=== PATIENT | female | born 1970 | race Caucasian/White ===

== ENCOUNTER 2016-12-10 08:22 | Inpatient (IN) | payer OTHER ==
[2016-12-10 10:45] VITALS: BMI 40.1
--- NOTE | 2016-12-10 11:55 | HP ---
CIWA Score - CIWA Score Nausea/Vomitin-Int. Nausea w/Dry Heave Muscle Tremors: 4-Moderate,w/Arms Extend Anxiety: 4-Mod. Anxious/Guarded Agitation: 4-Moderately Restless Paroxysmal Sweats: 1-Minimal Palms Moist Orientation: 0-Oriented Tacttile Disturbances: 3-Moderate Itch/Numb/Burn Auditory Disturbances: 0-None Visual Disturbances: 0-None Headache: 1-Very Mild CIWA-Ar Total Score: 21 Admission ROS S - HPI Chief Complaint: DETOX TX FOR XANAX AND COCAINE DEPENDENCE Allergies/Adverse Reactions: Allergies Allergy/AdvReac Type Severity Reaction Status Date / Time No Known Allergies Allergy Verified 12/10/16 10:45 History of Present Illness: 46 Y/O FEMALE WITH A HX OF XANAX AND COCAINE DEPENDENCE ON MMTP SEEKING DETOX [place] - Ebola screening Have you traveled outside of the country in the last 21 days: No Have you had contact with anyone from an Ebola affected area: No Have you been sick,other than usual withdrawal symptoms: No Do you have a fever: No - Review of Systems Constitutional: Chills, Loss of Appetite, Night Sweats, Changes in sleep EENT: reports: Blurred Vision (HX DRY EYE), Dental Problems (TOOTH DECAY) Respiratory: reports: Shortness of Breath (HX ASTHMA), Wheezing GI: reports: Nausea, Poor Appetite, Poor Fluid Intake : reports: No Symptoms Reported Musculoskeletal: reports: Back Pain, Joint Pain (ELBOW PAIN), Muscle Pain Integumentary: reports: No Symptoms Reported Neuro: reports: Headache (MIGRAINES--FIORICETS IN THE PAST), Seizure (X 1), Tremors, Unsteady Gait, Dizziness Endocrine: reports: No Symptoms Reported Hematology: reports: Anemia, Blood Clots (LEFT ARM- WAS ON XERALTO BUT STOPPED.) Psychiatric: reports: Orientated x3, Anxious Other Systems: Reviewed and Negative Patient History - Patient Medical History Hx Anemia: No Hx Asthma: Yes Hx Chronic Obstructive Pulmonary Disease (COPD): No Hx Cancer: No Hx Cardiac Disorders: No Hx Congestive Heart Failure: No Hx Hypertension: No Hx Hypercholesterolemia: No Hx Pacemaker: No HX Cerebrovascular Accident: No Hx Seizures: Yes (last episode was in 12/08/2016) Hx Dementia: No Hx Diabetes: No Hx Gastrointestinal Disorders: Yes (acid reflux-NEXIUM; CHRONIC NAUSEA-- ZOFRAN 8 MG IN THE PAST) Hx Liver Disease: No Hx Genitourinary Disorders: No Hx Sexually Transmitted Disorders: Yes (syphilis) Hx Renal Disease (ESRD): No Hx Thyroid Disease: No Hx Human Immunodeficiency Virus (HIV): No (NEGATIVE HX) Hx Hepatitis C: No Hx Depression: Yes (ON MEDS) Hx Suicide Attempt: No (DENIES) Hx Bipolar Disorder: Yes Hx Schizophrenia: No - Patient Surgical History Past Surgical History: Yes Hx Neurologic Surgery: No Hx Cataract Extraction: No Hx Cardiac Surgery: No Hx Lung Surgery: No Hx Breast Surgery: No Hx Breast Biopsy: No Hx Abdominal Surgery: No Hx Appendectomy: No Hx Cholecystectomy: No Hx Genitourinary Surgery: No Hx Section: Yes (x6) Hx Orthopedic Surgery: No Hx Hysterectomy: No Anesthesia Reaction: No - PPD History Previous Implant?: Yes Documented Results: Negative w/o proof Date: 10/20/15 PPD to be Administered?: Yes - Reproductive History Patient is a Female of Child Bearing Age (11 -55 yrs old): Yes (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 History Hx Alcohol Use: Yes (SOCIALLY-WINE COOLERS) Hx Substance Use: Yes (COCAINE/XANAX) Substance Use Type: Cocaine, Tranquilizers Hx Substance Use Treatment: Yes ([facility]) - Substances Abused Cocaine Route: Injection Frequency: Daily Amount used: $50 Age of first use: 25 Date of Last Use: 12/08/16 Xanax Route: Oral Frequency: Daily Amount used: 5-6 mg. Age of first use: 36 Date of Last Use: 12/09/16 Family Disease History - Family Disease History Family Disease History: CA: Grandparent, Mother Admission Physical Exam [facility]HS - Vital Signs Vital Signs: Vital Signs - 24 hr 12/10/16 10:36 Temperature 97.8 F Pulse Rate 106 H Respiratory 20 Rate Blood Pressure 119/68 - Physical General Appearance: Yes: Moderate Distress, Irritable, Anxious HEENTM: Yes: EOMI, Normocephalic, ALE, Pharynx Normal Respiratory: Yes: Lungs Clear, Normal Breath Sounds, No Respiratory Distress Neck: Yes: Supple Breast: Yes: Breast Exam Deferred Cardiology: Yes: Regular Rhythm, S1, S2, Tachycardia Abdominal: Yes: Normal Bowel Sounds, Non Tender, Soft, Protuberent, Surgical Scar Genitourinary: Yes: Other (N/C) Back: Yes: Within Normal Limits Musculoskeletal: Yes: full range of Motion, Gait Steady Extremities: Yes: Normal Range of Motion, Non-Tender Neurological: Yes: calibration tester II-XII NML intact, Fully Oriented, Alert Integumentary: Yes: Dry, Warm Lymphatic: Yes: Within Normal Limits - Diagnostic (1) Asthma Current Visit: Yes Status: Chronic Qualifiers: Asthma severity: mild intermittent Asthma complication type: uncomplicated Qualified Code(s): J45.20 - Mild intermittent asthma, uncomplicated (2) Nicotine dependence Current Visit: Yes Status: Acute Qualifiers: Nicotine product type: cigarettes Substance use status: in withdrawal Qualified Code(s): F17.213 - Nicotine dependence, cigarettes, with withdrawal (3) Nausea Current Visit: Yes Status: Suspected (4) Sedative, hypnotic or anxiolytic dependence with withdrawal, uncomplicated Current Visit: Yes Status: Acute (5) Methadone maintenance therapy patient Current Visit: Yes Status: Chronic (6) Cocaine dependence, uncomplicated Current Visit: Yes Status: Acute (7) History of seizure Current Visit: Yes Status: Suspected (8) GERD (gastroesophageal reflux disease) Current Visit: Yes Status: Chronic Qualifiers: Esophagitis presence: without esophagitis Qualified Code(s): K21.9 - Gastro-esophageal reflux disease without esophagitis Cleared for Admission S - Detox or Rehab [facility] Level of Care: Medically Managed Detox Regimen/Protocol: Valium [facility] Breath Alcohol Content Breath Alcohol Content: 0 Urine Pregancy Test - Result Urine Test Results: Negative- NO Line Present Urine Drug Screen - Results Drug Screen Negative: No Urine Drug Screen Results: JUNAA-Cocaine, OPI-Opiates, BZO-Benzodiazepines, MTD- Methadone, TCA-Tricyclic Antidepress, OXY-Oxycodone
[2016-12-10] MEDS ORDERED: ACETAMINOPHEN 325 MG TABLET (FP) PO PRN (12:09)
[2016-12-10] MEDS ORDERED: IBUPROFEN 400 MG TABLET (FP) PO PRN (12:09)
[2016-12-10] MEDS ORDERED: MAG HYDROX/AL HYDROX/SIMETH 30 ML UNIT-DOSE CUP PO PRN (12:09)
[2016-12-10] MEDS ORDERED: METHADONE HCL 10 MG TABLET (FOR DETOX USE ONLY) PO ONE ×2 (12:09→23:00)
[2016-12-10] MEDS ORDERED: diphenhydrAMINE HCL 50 MG CAPSULE PO PRN (12:09)
[2016-12-10] MEDS ORDERED: MAGNESIUM CITRATE 300 ML BOTTLE PO PRN (12:09)
[2016-12-10] MEDS ORDERED: MAGNESIUM HYDROX 2400MG/30ML ORAL SUSPENSION 30 ML CUP PO PRN (12:09)
[2016-12-10] MEDS ORDERED: MENTHOL/PHENOL 1 EACH UD MM PRN (12:09)
[2016-12-10] MEDS ORDERED: P-EPHED 60MG/TRIPROLIDI 2.5MG TABLET PO PRN (12:09)
[2016-12-10] MEDS ORDERED: LOPERAMIDE HCL 2 MG CAPSULE PO PRN (12:09)
[2016-12-10] MEDS ORDERED: diazePAM 5 MG TABLET PO ONE (13:03)
[2016-12-10] MEDS: NICOTINE 21 MG/24 HOURS TOPICAL PATCH TD SCH (13:49)
[2016-12-10] MEDS: diazePAM 5 MG TABLET PO SCH ×2 (13:51→22:24)
--- NOTE | 2016-12-10 14:49 | CONSULT ---
[facility] Psychiatric Consult - Data Date of interview: 12/10/16 Admission source: [facility] Identifying data: This is 46 years old obese female with history of Bipoolar Disorder, inotxicated with: Alcohol, Opioids, Cocaine, Xanax annd Nicotine Substance Abuse History: - Smoking Cessation. Smoking history: Current every day smoker. Have you smoked in the past 12 months: Yes. Aproximately how many cigarettes per day: 40. Hx Chewing Tobacco Use: No. Initiated information on smoking cessation: Yes. 'Breaking Loose' booklet given: 12/10/16. - Substance & Tx. History. Hx Alcohol Use: Yes (SOCIALLY-WINE COOLERS). Hx Substance Use: Yes (COCAINE/XANAX). Substance Use Type: Cocaine, Tranquilizers. Hx Substance Use Treatment: Yes ([facility]-DETOX). - Substances Abused. Cocaine. Route: Injection. Frequency: Daily. Amount used: $50. Age of first use: 25. Date of Last Use: 12/08/16. Xanax. Route: Oral. Frequency: Daily. Amount used : 5-6 mg. Age of first use: 36. Date of Last Use: 12/09/16 Medical History: Asthma Obesity, GERD, Seizure history Psychiatric History: Patientb reprots to carry Bipolar disorder, OCD, reports most recent psychiatric admission on more then 15 years ago, reports being stable on;. Seroqule 100mg po tid. Gabapentine 300mg po tid. Cogentine 1mg po bid. Current MMTP 160mg per day. Ambien 1900mg po qhs Physical/Sexual Abuse/Trauma History: Denies Additional Comment: Seroquil 100mg po tid. Gabapentine 300mg po tid. Cogentine 1mg po bid. Ambien 1900mg po qhs Mental Status Exam - Mental Status Exam Alert and Oriented to: Person Cognitive Function: Fair Patient Appearance: Unkempt Mood: Anxious Affect: Mood Congruent Patient Behavior: Cooperative Speech Pattern: Appropriate Voice Loudness: Mildly Loud Thought Process: Circumstantial, Goal Oriented Thought Disorder: Being Controlled Hallucinations: Denies Suicidal Ideation: Denies Homicidal Ideation: Denies Insight/Judgement: Fair Sleep: Difficulty falling asleep Appetite: Weight gain Muscle strength/Tone: Mild Hypotonicity Gait/Station: Shuffling Additional Comments: Seroqule 100mg po tid. Gabapentine 300mg po tid. Cogentine 1mg po bid. Ambien 1900mg po qhs Psychiatric Findings - Problem List ([place] 1, 2,3) (1) Cocaine dependence, uncomplicated Current Visit: Yes Status: Acute (2) Nicotine dependence Current Visit: Yes Status: Acute Qualifiers: Nicotine product type: cigarettes Substance use status: in withdrawal Qualified Code(s): F17.213 - Nicotine dependence, cigarettes, with withdrawal (3) Sedative, hypnotic or anxiolytic dependence with withdrawal, uncomplicated Current Visit: Yes Status: Acute (4) GERD (gastroesophageal reflux disease) Current Visit: Yes Status: Chronic Qualifiers: Esophagitis presence: without esophagitis Qualified Code(s): K21.9 - Gastro-esophageal reflux disease without esophagitis (5) Methadone maintenance therapy patient Current Visit: Yes Status: Chronic (6) Bipolar I disorder Current Visit: No Status: Acute (7) OCD (obsessive compulsive disorder) Current Visit: No Status: Acute (8) Opioid dependence Current Visit: No Status: Chronic - Initial Treatment Plan Initial Treatment Plan: Seroqule 100mg po tid. Gabapentine 300mg po tid. Cogentine 1mg po bid. Ambien 1900mg po qhs
[2016-12-10] MEDS: GABAPENTIN 300 MG CAPSULE (FP) PO SCH ×2 (16:01→22:24)
[2016-12-10 16:16] LABS: URINE APPEARANCE CLOUDY; URINE BILIRUBIN NEGATIVE (NEGATIVE); URINE BLOOD NEGATIVE (NEGATIVE); URINE COLOR AMBER; URINE GLUCOSE (UA) NEGATIVE (NEGATIVE); URINE KETONE NEGATIVE (NEGATIVE); URINE NITRITE NEGATIVE (NEGATIVE); URINE UROBILINOGEN 2.0 E.U/dl E.U./dl (0.2-1.0)
[2016-12-10 16:26] LABS: URINE LEUK ESTERASE TRACE (NEGATIVE); URINE PROTEIN 1+ (NEGATIVE)
[2016-12-10 16:35] LABS: URINE BACTERIA RARE /hpf (NONE SEEN); URINE HYALINE CAST 1 /lpf; URINE MUCUS MODERATE; URINE RBC 2 /hpf (0-3); URINE WBC 4 /hpf (3-5)
[2016-12-10] MEDS: BENZTROPINE MESYLATE 1 MG TABLET (FP) PO SCH (22:24)
[2016-12-10] MEDS: ZOLPIDEM TARTRATE 10 MG TABLET (PARK CARE ONLY) PO PRN (22:24)
[2016-12-10] MEDS: THIAMINE HCL 100 MG TABLET (FP) PO SCH (22:24)
[2016-12-10] MEDS: QUEtiapine FUMARATE 100 MG TABLET (FP) PO SCH (22:24)
[2016-12-11] MEDS: METHADONE HCL 40 MG DISPERSABLE TABLET PO SCH (07:45)
[2016-12-11] MEDS: diazePAM 5 MG TABLET PO SCH ×3 (07:45→22:41)
[2016-12-11] MEDS: GABAPENTIN 300 MG CAPSULE (FP) PO SCH ×3 (07:48→22:40)
[2016-12-11] MEDS: QUEtiapine FUMARATE 100 MG TABLET (FP) PO SCH ×3 (07:48→22:40)
[2016-12-11] MEDS: diazePAM 5 MG TABLET PO PRN (09:01)
[2016-12-11] MEDS: NICOTINE POLACRILEX 4 MG GUM BUC PRN ×2 (09:05→14:35)
[2016-12-11] MEDS ORDERED: METHADONE HCL 10 MG TABLET (FOR DETOX USE ONLY) PO SCH (10:00)
--- NOTE | 2016-12-11 10:08 | PN ---
[facility] CIWA - CIWA Score Nausea/Vomitin-No Nausea/No Vomiting Muscle Tremors: 3 Anxiety: 4-Mod. Anxious/Guarded Agitation: 3 Paroxysmal Sweats: 3 Orientation: 0-Oriented Tacttile Disturbances: 0-None Auditory Disturbances: 0-None Visual Disturbances: 0-None Headache: 1-Very Mild CIWA-Ar Total Score: 14 S Progress Note (SOAP) Subjective: anxiety sweats agitation body aches irritable interrupted sleep Objective: 12/11/16 10:07 Vital Signs Temperature 98.4 F 12/11/16 09:54 Pulse Rate 109 H 12/11/16 09:54 Respiratory Rate 14 12/11/16 09:54 Blood Pressure 113/63 12/11/16 09:54 O2 Sat by Pulse Oximetry (%) Laboratory Tests 12/10/16 14:00 Urine Color Claudia Urine Appearance Cloudy Urine pH 5.0 Ur Specific [place] 1.025 Urine Protein 1+ H Urine Glucose (UA) Negative Urine Ketones Negative Urine Blood Negative Urine Nitrite Negative Urine Bilirubin Negative Urine Urobilinogen 2.0 e.u/dl H Ur Leukocyte Esterase Trace H Urine RBC 2 Urine WBC 4 Ur Epithelial Cells Many Urine Bacteria Rare Hyaline Casts 1 Urine Mucus Moderate labs pending awake/alert ambulating no acute distress Assessment: 12/11/16 10:08 withdrawal sx Plan: continue detox increase fluids labs pending
[2016-12-11 10:39] LABS: MCH 29.7 pg (25.7-33.7); MCHC 33.4 g/dl (32.0-36.0); MEAN CELL VOLUME 88.9 fl (80-96); MEAN PLT VOLUME 8.8 fl (7.5-11.1); PLATELET COUNT 302 K/MM3 (134-434); RDW 13.8 % (11.6-15.6); WHITE BLOOD COUNT 7.5 K/mm3 (4.0-10.0)
[2016-12-11] MEDS: PRENATAL VITAMINS W/ FOLIC ACID TABLET (FP) PO SCH (10:42)
[2016-12-11] MEDS: BENZTROPINE MESYLATE 1 MG TABLET (FP) PO SCH ×2 (10:42→22:40)
[2016-12-11] MEDS: NICOTINE 21 MG/24 HOURS TOPICAL PATCH TD SCH (10:44)
[2016-12-11 11:08] LABS: ALBUMIN 3.2 g/dl (3.4-5.0); ALK PHOS 89 U/L (45-117); ANION GAP 9 (8-16); BILIRUBIN,TOTAL 0.4 mg/dL (0.2-1.0); CALCIUM 8.6 mg/dL (8.5-10.1); CO2 27 mmol/L (21-32); CREATININE 0.7 mg/dL (0.55-1.02); GLUCOSE,RANDOM 97 mg/dL (74-106); SGOT/AST 50 U/L (15-37); SGPT/ALT 38 U/L (12-78); TOT PROT 6.9 g/dl (6.4-8.2)
[2016-12-11] MEDS: guaiFENesin/D-METHORPHAN HB 10 ML UNIT-DOSE CUPS PO PRN ×2 (15:23→22:41)
[2016-12-11] MEDS ORDERED: ALBUTEROL SO4 6.7 GM HFA INHALER IH ONE (15:24)
[2016-12-11] MEDS: ALBUTEROL SO4 6.7 GM HFA INHALER IH PRN (15:25)
--- NOTE | 2016-12-11 17:22 | EKG ---
Test Reason : Blood Pressure : / mmHG Vent. Rate : 094 BPM Atrial Rate : 094 BPM P-R Int : 142 ms QRS Dur : 082 ms QT Int : 368 ms P-R-T Axes : 063 016 047 degrees QTc Int : 460 ms NORMAL SINUS RHYTHM POSSIBLE LEFT ATRIAL ENLARGEMENT BORDERLINE ECG WHEN COMPARED WITH ECG OF 20-OCT-2015 13:30, PREMATURE VENTRICULAR COMPLEXES ARE NO LONGER PRESENT T WAVE VARIATION QT HAS LENGTHENED Confirmed by GARTH MILLIGAN, CHER ([id number]) on 12/11/2016 5:21:57 PM Referred By: Telly Irizarry Confirmed By:CHER LIANG MD
[2016-12-11] MEDS: ALBUTEROL SO4 2.5/IPRATROPIUM 0.5 INH SOL 3 ML VIAL.NEB. NEB SCH ×2 (18:40→23:27)
[2016-12-11] MEDS: ZOLPIDEM TARTRATE 10 MG TABLET (PARK CARE ONLY) PO PRN (22:40)
[2016-12-11] MEDS: THIAMINE HCL 100 MG TABLET (FP) PO SCH (22:58)
[2016-12-12] MEDS: GABAPENTIN 300 MG CAPSULE (FP) PO SCH ×3 (07:30→22:50)
[2016-12-12] MEDS: METHADONE HCL 40 MG DISPERSABLE TABLET PO SCH (07:30)
[2016-12-12] MEDS: ALBUTEROL SO4 2.5/IPRATROPIUM 0.5 INH SOL 3 ML VIAL.NEB. NEB SCH ×2 (07:34→22:53)
[2016-12-12] MEDS: QUEtiapine FUMARATE 100 MG TABLET (FP) PO SCH ×3 (07:35→22:50)
[2016-12-12] MEDS ORDERED: METHADONE HCL 5 MG TABLET (FOR DETOX USE ONLY) PO SCH (10:00)
[2016-12-12] MEDS: PRENATAL VITAMINS W/ FOLIC ACID TABLET (FP) PO SCH (10:39)
[2016-12-12] MEDS: NICOTINE 21 MG/24 HOURS TOPICAL PATCH TD SCH (10:39)
[2016-12-12] MEDS: BENZTROPINE MESYLATE 1 MG TABLET (FP) PO SCH ×2 (10:39→22:50)
[2016-12-12] MEDS: diazePAM 5 MG TABLET PO SCH ×2 (10:40→22:50)
--- NOTE | 2016-12-12 12:10 | PN ---
[facility] CIWA - CIWA Score Nausea/Vomitin Muscle Tremors: 2 Anxiety: 3 Agitation: 2 Paroxysmal Sweats: 2 Orientation: 0-Oriented Tacttile Disturbances: 2-Mild Itch/Numbness/Burn Auditory Disturbances: 0-None Visual Disturbances: 0-None Headache: 0-None Present CIWA-Ar Total Score: 13 S Progress Note (SOAP) Subjective: interrupted sleep, left arm pain , anxious Objective: 12/12/16 12:07 Vital Signs Temperature 98.2 F 12/12/16 10:00 Pulse Rate 98 H 12/12/16 10:00 Respiratory Rate 18 12/12/16 10:00 Blood Pressure 114/66 12/12/16 10:00 O2 Sat by Pulse Oximetry (%) Laboratory Tests 12/10/16 12/11/16 12/11/16 14:00 06:00 06:00 WBC 7.5 RBC 4.09 Hgb 12.1 Hct 36.3 MCV 88.9 MCHC 33.4 RDW 13.8 Plt Count 302 D MPV 8.8 Sodium 143 Potassium 4.2 Chloride 107 Carbon Dioxide 27 Anion Gap 9 BUN 9 D Creatinine 0.7 D Creat Clearance w eGFR > 60 Random Glucose 97 Calcium 8.6 Total Bilirubin 0.4 AST 50 H D ALT 38 D Alkaline Phosphatase 89 Total Protein 6.9 Albumin 3.2 L Urine Color Claudia Urine Appearance Cloudy Urine pH 5.0 Ur Specific [place] 1.025 Urine Protein 1+ H Urine Glucose (UA) Negative Urine Ketones Negative Urine Blood Negative Urine Nitrite Negative Urine Bilirubin Negative Urine Urobilinogen 2.0 e.u/dl H Ur Leukocyte Esterase Trace H Urine RBC 2 Urine WBC 4 Ur Epithelial Cells Many Urine Bacteria Rare Hyaline Casts 1 Urine Mucus Moderate RPR Titer 12/11/16 06:00 WBC RBC Hgb Hct MCV MCHC RDW Plt Count MPV Sodium Potassium Chloride Carbon Dioxide Anion Gap BUN Creatinine Creat Clearance w eGFR Random Glucose Calcium Total Bilirubin AST ALT Alkaline Phosphatase Total Protein Albumin Urine Color Urine Appearance Urine pH Ur Specific [place] Urine Protein Urine Glucose (UA) Urine Ketones Urine Blood Urine Nitrite Urine Bilirubin Urine Urobilinogen Ur Leukocyte Esterase Urine RBC Urine WBC Ur Epithelial Cells Urine Bacteria Hyaline Casts Urine Mucus RPR Titer Nonreactive pt aox3 in nad ambulating Assessment: 12/12/16 12:08 withdrawal sx's left arm mass? lipoma h/o dvt no redness , swelling Plan: cont. detox increase fluids xray left arm
[2016-12-12] MEDS: diazePAM 5 MG TABLET PO PRN (13:38)
[2016-12-12] MEDS: FLUoxetine HCL 20 MG CAPSULE (FP) PO SCH (13:39)
[2016-12-12] MEDS: NICOTINE POLACRILEX 4 MG GUM BUC PRN ×2 (15:12→22:54)
[2016-12-12] MEDS: ALBUTEROL SO4 6.7 GM HFA INHALER IH PRN (22:49)
[2016-12-12] MEDS: THIAMINE HCL 100 MG TABLET (FP) PO SCH (22:49)
[2016-12-12] MEDS: ZOLPIDEM TARTRATE 10 MG TABLET (PARK CARE ONLY) PO PRN (22:50)
[2016-12-12] MEDS: guaiFENesin/D-METHORPHAN HB 10 ML UNIT-DOSE CUPS PO PRN (22:50)
[2016-12-13] MEDS: ALBUTEROL SO4 2.5/IPRATROPIUM 0.5 INH SOL 3 ML VIAL.NEB. NEB SCH ×2 (00:22→17:55)
[2016-12-13] MEDS: GABAPENTIN 300 MG CAPSULE (FP) PO SCH ×3 (06:19→22:34)
[2016-12-13] MEDS: METHADONE HCL 40 MG DISPERSABLE TABLET PO SCH (06:20)
[2016-12-13] MEDS: QUEtiapine FUMARATE 100 MG TABLET (FP) PO SCH ×3 (06:22→22:34)
[2016-12-13] MEDS: NICOTINE POLACRILEX 4 MG GUM BUC PRN ×2 (06:30→18:06)
[2016-12-13] MEDS: PRENATAL VITAMINS W/ FOLIC ACID TABLET (FP) PO SCH (11:01)
[2016-12-13] MEDS: FLUoxetine HCL 20 MG CAPSULE (FP) PO SCH (11:01)
[2016-12-13] MEDS: diazePAM 5 MG TABLET PO SCH ×2 (11:01→22:34)
[2016-12-13] MEDS: NICOTINE 21 MG/24 HOURS TOPICAL PATCH TD SCH (11:02)
[2016-12-13] MEDS: BENZTROPINE MESYLATE 1 MG TABLET (FP) PO SCH ×2 (11:02→22:34)
--- NOTE | 2016-12-13 11:19 | PN ---
S Progress Note (SOAP) Subjective: left upper arm tenderness sweats back pain Objective: 12/13/16 11:18 Vital Signs Temperature 98.1 F 12/13/16 09:40 Pulse Rate 78 12/13/16 09:40 Respiratory Rate 20 12/13/16 09:40 Blood Pressure 100/56 12/13/16 09:40 O2 Sat by Pulse Oximetry (%) awake/alert ambulating no acute distress Assessment: 12/13/16 11:20 mild withdrawals Plan: continue detox increase fluids ultrasound result of upper left arm pending lidocaine patch ordered for back
[2016-12-13] MEDS ORDERED: LIDOCAINE 5% TOPICAL PATCH TP ONE (11:21)
[2016-12-13] MEDS ORDERED: hydrOXYzine PAMOATE 50 MG CAPSULE (FP) PO PRN (17:28)
--- NOTE | 2016-12-13 19:14 | PN ---
[id number]. Clearly invested in medication-seeking behavior. No clinical justification for medications changes. Request is denied and patient got redirected. In response,she started acting out.Loud,argumentative. Caused a commotion on the unit (racial slurs,profane language). Verbally abusive towards nursing staff.Intimidating attitude.Splitting. Patient is observed trying to polarize peers against the treating staff. This is an overt expression of antisocial/borderline personality traits. Interventions : Ms Magana is redirected about rules/regulations. Security personnel is summoned for assistance. Debriefing session with Multidisciplinary team. Limits set. Effective crisis intervention (patient calmed down).
[2016-12-13] MEDS: ZOLPIDEM TARTRATE 10 MG TABLET (PARK CARE ONLY) PO PRN (21:30)
[2016-12-13] MEDS: THIAMINE HCL 100 MG TABLET (FP) PO SCH (22:34)
[2016-12-14 06:58] VITALS: BP 109/61; PULSE 74; TEMP 97.7
[2016-12-14] MEDS: METHADONE HCL 40 MG DISPERSABLE TABLET PO SCH (07:31)
[2016-12-14] MEDS: GABAPENTIN 300 MG CAPSULE (FP) PO SCH (07:31)
[2016-12-14] MEDS: PRENATAL VITAMINS W/ FOLIC ACID TABLET (FP) PO SCH (09:35)
[2016-12-14] MEDS: BENZTROPINE MESYLATE 1 MG TABLET (FP) PO SCH (09:35)
[2016-12-14] MEDS: FLUoxetine HCL 20 MG CAPSULE (FP) PO SCH (09:35)
[2016-12-14] MEDS: NICOTINE 21 MG/24 HOURS TOPICAL PATCH TD SCH (09:36)
[2016-12-14] MEDS ORDERED: diazePAM 5 MG TABLET PO SCH (10:00)
[2016-12-14] MEDS ORDERED: METHADONE HCL 10 MG TABLET (FOR DETOX USE ONLY) PO SCH (10:00)
[2016-12-15] MEDS ORDERED: METHADONE HCL 5 MG TABLET (FOR DETOX USE ONLY) PO SCH (06:00)
--- NOTE | 2016-12-27 16:55 | DS ---
[facility] Detox Discharge Summary Admission Date: 12/10/16 - History Present History: Cocaine Dependence, Sedative Dependence, MMTP - Physical Exam Results Vital Signs: Vital Signs Temperature 97.7 F 12/14/16 06:00 Pulse Rate 74 12/14/16 06:00 Respiratory Rate 18 12/14/16 06:00 Blood Pressure 109/61 12/14/16 06:00 O2 Sat by Pulse Oximetry (%) - Treatment Hospital Course: Detox Protocol Followed, Detoxed Safely, Responded well, Discharged Condition Good - Medication Discharge Medications: Ambulatory Orders Albuterol Sulfate Inhaler - [Ventolin Hfa Inhaler -] 2 inh PO Q4H PRN 10/18/15 Quetiapine Fumarate [Seroquel] 50 mg PO BID #60 tablet 10/20/15 Benztropine Mesylate [Cogentin -] 1 mg PO BID #60 tablet 12/10/16 Gabapentin 300 mg PO TID #90 ml 12/10/16 Gabapentin [Neurontin -] 100 mg PO Q8H 12/10/16 Quetiapine Fumarate [Seroquel -] 300 mg PO BID #60 tab 12/10/16 Zolpidem Tartrate [Ambien] 10 mg PO HS 12/10/16 Fluoxetine HCl [Prozac -] 40 mg PO DAILY #30 cap 12/12/16 - Diagnosis (1) Bipolar I disorder Status: Chronic (2) Cocaine dependence, uncomplicated Status: Chronic (3) Muscular chest pain Status: Acute (4) Nicotine dependence Status: Chronic Qualifiers: Nicotine product type: cigarettes Substance use status: uncomplicated Qualified Code(s): F17.210 - Nicotine dependence, cigarettes, uncomplicated (5) OCD (obsessive compulsive disorder) Status: Chronic Qualifiers: Obsessive-compulsive disorder type: unspecified Qualified Code(s): F42.9 - Obsessive-compulsive disorder, unspecified (6) Sedative, hypnotic or anxiolytic dependence with withdrawal, uncomplicated Status: Chronic (7) Asthma Status: Chronic Qualifiers: Asthma severity: mild intermittent Asthma complication type: uncomplicated Qualified Code(s): J45.20 - Mild intermittent asthma, uncomplicated (8) GERD (gastroesophageal reflux disease) Status: Chronic Qualifiers: Esophagitis presence: without esophagitis Qualified Code(s): K21.9 - Gastro-esophageal reflux disease without esophagitis (9) Methadone maintenance therapy patient Status: Chronic - AMA Did Patient Leave Against Medical Advice: No
== END 2016-12-14 10:11 | disposition home or self-care (01) | DRG 773 ==
LOC: YASAS 08:22 → Y6N 12:37
PROVIDERS: ADMIT Internal Medicine Addiction Medicine; ATTEND Internal Medicine Addiction Medicine
PROC: HZ2ZZZZ Detoxification Services for Substance Abuse Treatment (ICD-10-PCS; principal; 2016-12-14)
DX: F11.20 Opioid dependence, uncomplicated (principal); F13.230 Sedative, hypnotic or anxiolytic dependence with withdrawal, uncomplicated; F14.20 Cocaine dependence, uncomplicated; F17.213 Nicotine dependence, cigarettes, with withdrawal; F31.9 Bipolar disorder, unspecified; F42.9 Obsessive-compulsive disorder, unspecified; K21.9 Gastro-esophageal reflux disease without esophagitis; J45.30 Mild persistent asthma, uncomplicated; G40.909 Epilepsy, unspecified, not intractable, without status epilepticus; R11.0 Nausea; Z87.42 Personal history of other diseases of the female genital tract
CPT/HCPCS: 36415; 80053; 81003; 81015; 85027; 86593; 93005; 93010; 93971; 94640

== ENCOUNTER 2017-08-26 11:26 | Inpatient (IN) | payer OTHER ==
[2017-08-26 11:59] VITALS: BMI 40.5
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
[2017-08-26] MEDS ORDERED: LOPERAMIDE HCL 2 MG CAPSULE PO PRN (16:49)
[2017-08-26] MEDS ORDERED: diazePAM 5 MG TABLET PO ONE (16:49)
[2017-08-26] MEDS ORDERED: MAG HYDROX/AL HYDROX/SIMETH 30 ML UNIT-DOSE CUP PO PRN (16:49)
[2017-08-26] MEDS ORDERED: P-EPHED 60MG/TRIPROLIDI 2.5MG TABLET PO PRN (16:49)
[2017-08-26] MEDS ORDERED: ACETAMINOPHEN 325 MG TABLET (FP) PO PRN (16:49)
[2017-08-26] MEDS ORDERED: MENTHOL/PHENOL 1 EACH UD MM PRN (16:49)
[2017-08-26] MEDS ORDERED: guaiFENesin/D-METHORPHAN HB 10 ML UNIT-DOSE CUPS PO PRN (16:49)
[2017-08-26] MEDS ORDERED: MAGNESIUM CITRATE 300 ML BOTTLE PO PRN (16:49)
[2017-08-26] MEDS ORDERED: MAGNESIUM HYDROX 2400MG/30ML ORAL SUSPENSION 30 ML CUP PO PRN (16:49)
[2017-08-26] MEDS: NICOTINE POLACRILEX 4 MG GUM BUC PRN (18:26)
[2017-08-26] MEDS: NICOTINE 21 MG/24 HOURS TOPICAL PATCH TD SCH (18:26)
[2017-08-26] MEDS: diazePAM 5 MG TABLET PO SCH (22:06)
[2017-08-26] MEDS: THIAMINE HCL 100 MG TABLET (FP) PO SCH (22:06)
[2017-08-26 23:30] LABS: URINE APPEARANCE CLEAR; URINE BILIRUBIN NEGATIVE (NEGATIVE); URINE BLOOD NEGATIVE (NEGATIVE); URINE COLOR YELLOW; URINE GLUCOSE (UA) NEGATIVE (NEGATIVE); URINE KETONE NEGATIVE (NEGATIVE); URINE LEUK ESTERASE TRACE (NEGATIVE); URINE NITRITE NEGATIVE (NEGATIVE); URINE PROTEIN NEGATIVE (NEGATIVE); URINE UROBILINOGEN NEGATIVE mg/dL (0.2-1.0)
[2017-08-26 23:53] LABS: EPI CELLS RARE /HPF (FEW); URINE BACTERIA RARE /hpf (NONE SEEN); URINE MUCUS RARE
[2017-08-27] MEDS: diazePAM 5 MG TABLET PO PRN ×3 (00:39→18:16)
[2017-08-27] MEDS: diazePAM 5 MG TABLET PO SCH ×3 (06:12→22:12)
[2017-08-27] MEDS: METHADONE HCL 40 MG DISPERSABLE TABLET PO SCH (07:21)
[2017-08-27] MEDS: NICOTINE POLACRILEX 4 MG GUM BUC PRN (07:22)
[2017-08-27] MEDS ORDERED: ONDANSETRON *ODT* 4 MG TABLET SL ONE (09:35)
--- NOTE | 2017-08-27 09:39 | PN ---
S CIWA - CIWA Score Nausea/Vomitin-Int. Nausea w/Dry Heave Muscle Tremors: 3 Anxiety: 4-Mod. Anxious/Guarded Agitation: 4-Moderately Restless Paroxysmal Sweats: 1-Minimal Palms Moist Orientation: 0-Oriented Tacttile Disturbances: 0-None Auditory Disturbances: 0-None Visual Disturbances: 0-None Headache: 0-None Present CIWA-Ar Total Score: 16 BHS Progress Note (SOAP) Subjective: nausea, sweats, interrupted sleep, anxiety, tremors back pain reproted Objective: 08/27/17 09:38 Vital Signs - 24 hr 08/26/17 08/26/17 08/26/17 11:57 17:51 21:52 Temperature 96 F L 97.9 F 98.1 F Pulse Rate 116 H 98 H 94 H Respiratory 20 18 16 Rate Blood Pressure 117/79 116/82 133/63 08/27/17 08/27/17 03:30 06:25 Temperature 97.7 F Pulse Rate 84 Respiratory 18 18 Rate Blood Pressure 110/82 Laboratory Tests 08/26/17 Unknown Urine Color Yellow Urine Appearance Clear Urine pH 5.0 Ur Specific [place] 1.015 Urine Protein Negative Urine Glucose (UA) Negative Urine Ketones Negative Urine Blood Negative Urine Nitrite Negative Urine Bilirubin Negative Urine Urobilinogen Negative Ur Leukocyte Esterase Trace Urine WBC (Auto) 1 Urine RBC (Auto) 1 Ur Epithelial Cells Rare Urine Bacteria Rare Urine Mucus Rare labs still pending Assessment: 08/27/17 09:38 withdrawal sx, cont detox, fluids, encourage ambualtion, zofran for nausea, baclofen for back pain
[2017-08-27 10:12] LABS: ALBUMIN 3.6 g/dl (3.4-5.0); ANION GAP 7 (8-16); BILIRUBIN,TOTAL 0.5 mg/dL (0.2-1.0); BLOOD UREA NITROGEN 10 mg/dL (7-18); CALCIUM 8.8 mg/dL (8.5-10.1); CHLORIDE 104 mmol/L (98-107); CO2 31 mmol/L (21-32); CREATININE 0.8 mg/dL (0.55-1.02); GLUCOSE,RANDOM 79 mg/dL (74-106); SGOT/AST 41 U/L (15-37); SGPT/ALT 51 U/L (12-78); SODIUM 142 mmol/L (136-145); TOT PROT 7.6 g/dl (6.4-8.2)
[2017-08-27 10:13] LABS: ALK PHOS 107 U/L (45-117)
[2017-08-27 10:19] LABS: HEMATOCRIT 39.1 % (32.4-45.2); HEMOGLOBIN 12.7 GM/dL (10.7-15.3); MCH 28.7 pg (25.7-33.7); MCHC 32.5 g/dl (32.0-36.0); MEAN CELL VOLUME 88.5 fl (80-96); MEAN PLT VOLUME 8.3 fl (7.5-11.1); PLATELET COUNT 394 K/MM3 (134-434); RBC 4.42 M/mm3 (3.60-5.2); WHITE BLOOD COUNT 6.7 K/mm3 (4.0-10.0)
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
[2017-08-27] MEDS: QUEtiapine FUMARATE 200 MG TABLET PO SCH ×2 (10:41→22:12)
[2017-08-27] MEDS: NICOTINE 21 MG/24 HOURS TOPICAL PATCH TD SCH (10:42)
[2017-08-27] MEDS: PRENATAL VITAMINS W/ FOLIC ACID TABLET (FP) PO SCH (10:42)
[2017-08-27] MEDS: GABAPENTIN 300 MG CAPSULE (FP) PO SCH ×2 (13:35→22:12)
[2017-08-27] MEDS: BACLOFEN 10 MG TABLET (FP) PO SCH ×2 (13:35→22:11)
--- NOTE | 2017-08-27 14:10 | EKG ---
Test Reason : Blood Pressure : / mmHG Vent. Rate : 092 BPM Atrial Rate : 092 BPM P-R Int : 152 ms QRS Dur : 082 ms QT Int : 380 ms P-R-T Axes : 070 019 038 degrees QTc Int : 469 ms NORMAL SINUS RHYTHM NORMAL ECG WHEN COMPARED WITH ECG OF 10-DEC-2016 12:35, NONSPECIFIC T WAVE ABNORMALITY NO LONGER EVIDENT IN ANTERIOR LEADS Confirmed by MD Rina, Cristian ([id number]) on 08/27/2017 2:09:48 PM Referred By: Confirmed By:Cristian Flynn MD
[2017-08-27] MEDS: ZOLPIDEM TARTRATE 10 MG TABLET (PARK CARE ONLY) PO PRN (22:11)
[2017-08-27] MEDS: THIAMINE HCL 100 MG TABLET (FP) PO SCH (22:12)
[2017-08-27] MEDS: metroNIDAZOLE 0.75% VAGINAL GEL 70 GM TUBE VG SCH (22:12)
[2017-08-28] MEDS: METHADONE HCL 40 MG DISPERSABLE TABLET PO SCH (05:23)
[2017-08-28] MEDS: GABAPENTIN 300 MG CAPSULE (FP) PO SCH ×3 (05:24→22:02)
[2017-08-28] MEDS: BACLOFEN 10 MG TABLET (FP) PO SCH (05:24)
--- NOTE | 2017-08-28 09:27 | PN ---
[facility] CIWA - CIWA Score Nausea/Vomitin-Mild Nausea/No Vomiting Muscle Tremors: 3 Anxiety: 3 Agitation: 3 Paroxysmal Sweats: 1-Minimal Palms Moist Orientation: 0-Oriented Tacttile Disturbances: 0-None Auditory Disturbances: 0-None Visual Disturbances: 0-None Headache: 0-None Present CIWA-Ar Total Score: 11 S Progress Note (SOAP) Subjective: tremor sweat anxiety GI upset Objective: 08/28/17 09:27 Vital Signs Temperature 97.9 F 08/28/17 06:20 Pulse Rate 78 08/28/17 06:20 Respiratory Rate 19 08/28/17 06:20 Blood Pressure 109/61 08/28/17 06:20 O2 Sat by Pulse Oximetry (%) Laboratory Last Values WBC 6.7 K/mm3 (4.0-10.0) 08/27/17 06:00 RBC 4.42 M/mm3 (3.60-5.2) 08/27/17 06:00 Hgb 12.7 GM/dL (10.7-15.3) 08/27/17 06:00 Hct 39.1 % (32.4-45.2) 08/27/17 06:00 MCV 88.5 fl (80-96) 08/27/17 06:00 MCH 28.7 pg (25.7-33.7) 08/27/17 06:00 MCHC 32.5 g/dl (32.0-36.0) 08/27/17 06:00 RDW 14.0 % (11.6-15.6) 08/27/17 06:00 Plt Count 394 K/MM3 (134-434) D 08/27/17 06:00 MPV 8.3 fl (7.5-11.1) 08/27/17 06:00 Sodium 142 mmol/L (136-145) 08/27/17 06:00 Potassium 4.0 mmol/L (3.5-5.1) 08/27/17 06:00 Chloride 104 mmol/L (98-107) 08/27/17 06:00 Carbon Dioxide 31 mmol/L (21-32) 08/27/17 06:00 Anion Gap 7 (8-16) L 08/27/17 06:00 BUN 10 mg/dL (7-18) 08/27/17 06:00 Creatinine 0.8 mg/dL (0.55-1.02) 08/27/17 06:00 Creat Clearance w eGFR > 60 (>60) 08/27/17 06:00 Random Glucose 79 mg/dL (74-106) 08/27/17 06:00 Calcium 8.8 mg/dL (8.5-10.1) 08/27/17 06:00 Total Bilirubin 0.5 mg/dL (0.2-1.0) D 08/27/17 06:00 AST 41 U/L (15-37) H 08/27/17 06:00 ALT 51 U/L (12-78) 08/27/17 06:00 Alkaline Phosphatase 107 U/L (45-117) 08/27/17 06:00 Total Protein 7.6 g/dl (6.4-8.2) 08/27/17 06:00 Albumin 3.6 g/dl (3.4-5.0) 08/27/17 06:00 Urine Color Yellow 08/26/17 Unknown Urine Appearance Clear 08/26/17 Unknown Urine pH 5.0 (5.0-8.0) 08/26/17 Unknown Ur Specific [place] 1.015 (1.001-1.035) 08/26/17 Unknown Urine Protein Negative (NEGATIVE) 08/26/17 Unknown Urine Glucose (UA) Negative (NEGATIVE) 08/26/17 Unknown Urine Ketones Negative (NEGATIVE) 08/26/17 Unknown Urine Blood Negative (NEGATIVE) 08/26/17 Unknown Urine Nitrite Negative (NEGATIVE) 08/26/17 Unknown Urine Bilirubin Negative (NEGATIVE) 08/26/17 Unknown Urine Urobilinogen Negative mg/dL (0.2-1.0) 08/26/17 Unknown Ur Leukocyte Esterase Trace (NEGATIVE) 08/26/17 Unknown Urine WBC (Auto) 1 /hpf (3-5) 08/26/17 Unknown Urine RBC (Auto) 1 /hpf (0-3) 08/26/17 Unknown Ur Epithelial Cells Rare /HPF (FEW) 08/26/17 Unknown Urine Bacteria Rare /hpf (NONE SEEN) 08/26/17 Unknown Urine Mucus Rare 08/26/17 Unknown RPR Titer Nonreactive (NONREACTIVE) 08/27/17 06:00 Hepatitis C Antibody <0.1 s/co ratio (0.0-0.9) 08/26/17 06:00 HIV 1&2 Antibody Screen Negative 08/27/17 06:00 HIV P24 Antigen Negative 08/27/17 06:00 lab noted Assessment: 08/28/17 09:27 withdrawal sx Plan: continue detox
[2017-08-28] MEDS ORDERED: METHYL SALICYLATE/MENTHOL OINT 30 GM TUBE TP SCH (10:00)
[2017-08-28] MEDS: diazePAM 5 MG TABLET PO SCH ×2 (10:35→22:02)
[2017-08-28] MEDS: CYCLOBENZAPRINE HCL 10 MG TABLET (FP) PO PRN ×2 (10:35→22:02)
[2017-08-28] MEDS: QUEtiapine FUMARATE 200 MG TABLET PO SCH (10:35)
[2017-08-28] MEDS: PRENATAL VITAMINS W/ FOLIC ACID TABLET (FP) PO SCH (10:35)
[2017-08-28] MEDS: NICOTINE 21 MG/24 HOURS TOPICAL PATCH TD SCH (10:36)
[2017-08-28] MEDS: diazePAM 5 MG TABLET PO PRN ×2 (13:16→17:32)
[2017-08-28] MEDS: NICOTINE POLACRILEX 4 MG GUM BUC PRN ×2 (13:17→17:33)
--- NOTE | 2017-08-28 17:14 | PN ---
[facility] Progress Note Note: Psychiatric nurse practitioner: As per phamacy claims patient receives seroquel 200mg TID. Dosage confirmed with patient.Upon psychiatric consultation patient was prescribed 200mg BID to prevent oversedation. Pt. able to tolerate seroquel 200mg BID. No complaints of oversedation or dizziness reported. Seroquel to be increased to 250mg BID. Pt. agreeable with plan. Will continue to monitor.
[2017-08-28] MEDS ORDERED: QUEtiapine FUMARATE 200 MG TABLET PO SCH (17:19)
[2017-08-28] MEDS: ONDANSETRON *ODT* 4 MG TABLET SL PRN (17:32)
[2017-08-28] MEDS ORDERED: QUEtiapine FUMARATE 50 MG TABLET ONE (21:39)
[2017-08-28] MEDS ORDERED: QUEtiapine FUMARATE 200 MG TABLET ONE (21:40)
[2017-08-28] MEDS: THIAMINE HCL 100 MG TABLET (FP) PO SCH (22:01)
[2017-08-28] MEDS: QUETIAPINE FUMARATE 200 MG, QUETIAPINE FUMARATE 50 MG PO SCH (22:02)
[2017-08-28] MEDS: metroNIDAZOLE 0.75% VAGINAL GEL 70 GM TUBE VG SCH (22:03)
[2017-08-28] MEDS: ZOLPIDEM TARTRATE 10 MG TABLET (PARK CARE ONLY) PO PRN (22:04)
[2017-08-29] MEDS: GABAPENTIN 300 MG CAPSULE (FP) PO SCH ×3 (07:38→22:14)
[2017-08-29] MEDS: METHADONE HCL 40 MG DISPERSABLE TABLET PO SCH (07:38)
[2017-08-29] MEDS: diazePAM 5 MG TABLET PO PRN (07:57)
[2017-08-29] MEDS: NICOTINE POLACRILEX 4 MG GUM BUC PRN (08:03)
[2017-08-29] MEDS ORDERED: QUEtiapine FUMARATE 50 MG TABLET ONE ×2 (08:56→19:42)
[2017-08-29] MEDS ORDERED: QUEtiapine FUMARATE 200 MG TABLET ONE ×2 (08:56→19:43)
[2017-08-29] MEDS: QUETIAPINE FUMARATE 200 MG, QUETIAPINE FUMARATE 50 MG PO SCH ×2 (10:01→22:14)
[2017-08-29] MEDS: NICOTINE 21 MG/24 HOURS TOPICAL PATCH TD SCH (10:01)
[2017-08-29] MEDS: diazePAM 5 MG TABLET PO SCH ×2 (10:01→22:14)
[2017-08-29] MEDS: PRENATAL VITAMINS W/ FOLIC ACID TABLET (FP) PO SCH (10:01)
--- NOTE | 2017-08-29 10:08 | PN ---
S Progress Note (SOAP) Subjective: tremor anxiety sweat Objective: 08/29/17 10:07 Vital Signs Temperature 96.8 F L 08/29/17 06:00 Pulse Rate 100 H 08/29/17 07:30 Respiratory Rate 18 08/29/17 07:30 Blood Pressure 132/76 08/29/17 07:30 O2 Sat by Pulse Oximetry (%) Laboratory Last Values WBC 6.7 K/mm3 (4.0-10.0) 08/27/17 06:00 RBC 4.42 M/mm3 (3.60-5.2) 08/27/17 06:00 Hgb 12.7 GM/dL (10.7-15.3) 08/27/17 06:00 Hct 39.1 % (32.4-45.2) 08/27/17 06:00 MCV 88.5 fl (80-96) 08/27/17 06:00 MCH 28.7 pg (25.7-33.7) 08/27/17 06:00 MCHC 32.5 g/dl (32.0-36.0) 08/27/17 06:00 RDW 14.0 % (11.6-15.6) 08/27/17 06:00 Plt Count 394 K/MM3 (134-434) D 08/27/17 06:00 MPV 8.3 fl (7.5-11.1) 08/27/17 06:00 Sodium 142 mmol/L (136-145) 08/27/17 06:00 Potassium 4.0 mmol/L (3.5-5.1) 08/27/17 06:00 Chloride 104 mmol/L (98-107) 08/27/17 06:00 Carbon Dioxide 31 mmol/L (21-32) 08/27/17 06:00 Anion Gap 7 (8-16) L 08/27/17 06:00 BUN 10 mg/dL (7-18) 08/27/17 06:00 Creatinine 0.8 mg/dL (0.55-1.02) 08/27/17 06:00 Creat Clearance w eGFR > 60 (>60) 08/27/17 06:00 Random Glucose 79 mg/dL (74-106) 08/27/17 06:00 Calcium 8.8 mg/dL (8.5-10.1) 08/27/17 06:00 Total Bilirubin 0.5 mg/dL (0.2-1.0) D 08/27/17 06:00 AST 41 U/L (15-37) H 08/27/17 06:00 ALT 51 U/L (12-78) 08/27/17 06:00 Alkaline Phosphatase 107 U/L (45-117) 08/27/17 06:00 Total Protein 7.6 g/dl (6.4-8.2) 08/27/17 06:00 Albumin 3.6 g/dl (3.4-5.0) 08/27/17 06:00 Urine Color Yellow 08/26/17 Unknown Urine Appearance Clear 08/26/17 Unknown Urine pH 5.0 (5.0-8.0) 08/26/17 Unknown Ur Specific [place] 1.015 (1.001-1.035) 08/26/17 Unknown Urine Protein Negative (NEGATIVE) 08/26/17 Unknown Urine Glucose (UA) Negative (NEGATIVE) 08/26/17 Unknown Urine Ketones Negative (NEGATIVE) 08/26/17 Unknown Urine Blood Negative (NEGATIVE) 08/26/17 Unknown Urine Nitrite Negative (NEGATIVE) 08/26/17 Unknown Urine Bilirubin Negative (NEGATIVE) 08/26/17 Unknown Urine Urobilinogen Negative mg/dL (0.2-1.0) 08/26/17 Unknown Ur Leukocyte Esterase Trace (NEGATIVE) 08/26/17 Unknown Urine WBC (Auto) 1 /hpf (3-5) 08/26/17 Unknown Urine RBC (Auto) 1 /hpf (0-3) 08/26/17 Unknown Ur Epithelial Cells Rare /HPF (FEW) 08/26/17 Unknown Urine Bacteria Rare /hpf (NONE SEEN) 08/26/17 Unknown Urine Mucus Rare 08/26/17 Unknown RPR Titer Nonreactive (NONREACTIVE) 08/27/17 06:00 Hepatitis C Antibody <0.1 s/co ratio (0.0-0.9) 08/26/17 06:00 HIV 1&2 Antibody Screen Negative 08/27/17 06:00 HIV P24 Antigen Negative 08/27/17 06:00 lab noted Assessment: 08/29/17 10:07 withdrawal sx Plan: continue detox
[2017-08-29] MEDS: hydrOXYzine PAMOATE 50 MG CAPSULE (FP) PO PRN (12:03)
[2017-08-29] MEDS: CYCLOBENZAPRINE HCL 10 MG TABLET (FP) PO PRN ×2 (12:03→22:14)
[2017-08-29] MEDS: ONDANSETRON *ODT* 4 MG TABLET SL PRN (12:05)
[2017-08-29] MEDS: THIAMINE HCL 100 MG TABLET (FP) PO SCH (22:14)
[2017-08-29] MEDS: ZOLPIDEM TARTRATE 10 MG TABLET (PARK CARE ONLY) PO PRN (22:14)
[2017-08-29] MEDS: metroNIDAZOLE 0.75% VAGINAL GEL 70 GM TUBE VG SCH (22:15)
[2017-08-30] MEDS: hydrOXYzine PAMOATE 50 MG CAPSULE (FP) PO PRN (02:15)
[2017-08-30] MEDS: METHADONE HCL 40 MG DISPERSABLE TABLET PO SCH (06:22)
[2017-08-30] MEDS: GABAPENTIN 300 MG CAPSULE (FP) PO SCH (06:22)
--- NOTE | 2017-08-30 08:12 | DS ---
[facility] Detox Discharge Summary Admission Date: 08/26/17 Discharge Date: 08/30/17 - History Present History: Alcohol Dependence, Cocaine Dependence, MMTP Additional Comments: FOLLOW UP WITH AFTER CARE PROGRAM ARRANGEMENT Pertinent Past History: OBESITY GERD VAGINITIS - Physical Exam Results Vital Signs: Vital Signs Temperature 97.9 F 08/30/17 06:00 Pulse Rate 83 08/30/17 06:00 Respiratory Rate 18 08/30/17 06:00 Blood Pressure 108/63 08/30/17 06:00 O2 Sat by Pulse Oximetry (%) Pertinent Admission Physical Exam Findings: WITHDRAWAL SYMPTOM AND FINDING - Treatment Hospital Course: Detox Protocol Followed, Detoxed Safely, Responded well, Discharged Condition Good Patient has Accepted a Rehab Referral to: DECLINED - Medication Discharge Medications: Ambulatory Orders Albuterol Sulfate Inhaler - [Ventolin Hfa Inhaler -] 2 inh PO Q4H PRN 10/18/15 Gabapentin 300 mg PO TID #90 ml 12/10/16 Quetiapine Fumarate [Seroquel -] 400 mg PO TID 08/26/17 Zolpidem Tartrate [Ambien] 10 mg PO HS 08/26/17 - Diagnosis (1) Alcohol dependence with uncomplicated withdrawal Current Visit: Yes Status: Acute (2) GERD (gastroesophageal reflux disease) Current Visit: No Status: Chronic Qualifiers: Esophagitis presence: without esophagitis Qualified Code(s): K21.9 - Gastro -esophageal reflux disease without esophagitis (3) Methadone maintenance therapy patient Current Visit: No Status: Chronic (4) Asthma Current Visit: No Status: Chronic Qualifiers: Asthma severity: mild intermittent Asthma complication type: uncomplicated (5) Vaginitis Current Visit: Yes Status: Acute (6) Bipolar I disorder Current Visit: No Status: Chronic - AMA Did Patient Leave Against Medical Advice: No
[2017-08-30] MEDS ORDERED: QUEtiapine FUMARATE 200 MG TABLET ONE (08:46)
[2017-08-30] MEDS ORDERED: QUEtiapine FUMARATE 50 MG TABLET ONE (08:46)
[2017-08-30] MEDS: QUETIAPINE FUMARATE 200 MG, QUETIAPINE FUMARATE 50 MG PO SCH (09:01)
[2017-08-30] MEDS: PRENATAL VITAMINS W/ FOLIC ACID TABLET (FP) PO SCH (09:01)
[2017-08-30] MEDS ORDERED: diazePAM 5 MG TABLET PO SCH (10:00)
[2017-08-30 10:13] VITALS: BP 104/74; PULSE 99; TEMP 97.5
== END 2017-08-30 09:05 | disposition home or self-care (01) | DRG 773 ==
LOC: YASAS 11:26 → Y6N 16:58
PROVIDERS: ADMIT Internal Medicine; ATTEND Internal Medicine
PROC: HZ2ZZZZ Detoxification Services for Substance Abuse Treatment (ICD-10-PCS; principal; 2017-08-26)
DX: F10.230 Alcohol dependence with withdrawal, uncomplicated (principal); F11.20 Opioid dependence, uncomplicated; F17.210 Nicotine dependence, cigarettes, uncomplicated; F31.89 Other bipolar disorder; F43.10 Post-traumatic stress disorder, unspecified; G47.00 Insomnia, unspecified; N76.0 Acute vaginitis; J45.20 Mild intermittent asthma, uncomplicated; Z91.5 Personal history of self-harm; Z87.42 Personal history of other diseases of the female genital tract
CPT/HCPCS: 36415; 80053; 81003; 81015; 85027; 86593; 86803; 87389; 93005; 93010; J0475